=== PATIENT | female | born 1955 | race Caucasian/White ===

== ENCOUNTER 2017-08-29 08:00 | Outpatient (CLI) | payer OTHER | END 2017-08-29 10:00 | disposition home or self-care (01) | LOC: NUCLEAR 08:00 | DX: R91.1 Solitary pulmonary nodule (principal); K21.9 Gastro-esophageal reflux disease without esophagitis; J44.1 Chronic obstructive pulmonary disease with (acute) exacerbation | CPT/HCPCS: 78816; A9552 ==

== ENCOUNTER 2018-04-16 07:09 | Outpatient (CLI) | payer OTHER | END 2018-04-16 07:17 | disposition home or self-care (01) | LOC: TOM 07:09 | DX: R91.8 Other nonspecific abnormal finding of lung field (principal); Z72.0 Tobacco use ==

== ENCOUNTER 2019-04-27 07:35 | Outpatient (CLI) | payer OTHER | END 2019-04-27 07:52 | disposition home or self-care (01) | LOC: TOM 07:35 | DX: J44.9 Chronic obstructive pulmonary disease, unspecified (principal) ==

== ENCOUNTER → 2019-08-20 | Outpatient (CLI) | payer OTHER | END | disposition home or self-care (01) | LOC: RAD 08:34 | DX: M54.5 Low back pain (principal); M54.6 Pain in thoracic spine ==

== ENCOUNTER → 2019-08-21 | Outpatient (CLI) | payer OTHER | END | disposition home or self-care (01) | LOC: RAD 07:29 | DX: J44.9 Chronic obstructive pulmonary disease, unspecified (principal) ==

== ENCOUNTER 2023-06-25 13:43 | Outpatient (CLI) | payer OTHER | END 2023-06-25 13:55 | disposition home or self-care (01) | LOC: TOM 13:43 | DX: J44.9 Chronic obstructive pulmonary disease, unspecified (principal) ==

== ENCOUNTER → 2023-07-04 13:42 | Outpatient (CLI) | payer OTHER | END | disposition home or self-care (01) | LOC: NUCLEAR 13:42 | DX: M85.80 Other specified disorders of bone density and structure, unspecified site (principal) ==

== ENCOUNTER 2023-11-01 06:00 | Day surgery (SDC) | payer OTHER ==
[~2023-11-01] VITALS: Ht 172.7 cm; Wt 76.7 kg
[~2023-11-01 06:00] MED LIST: PROAIR RESPICL90 MCG IH; SINGULAIR10 MG PO; SYMBICORT 16010.2 GM IH
[2023-11-01] MEDS ORDERED: CEFTRIAXONE SODIUM 2,000 MG VIAL ONE (07:47)
[2023-11-01] MEDS ORDERED: METRONIDAZOLE/SODIUM CHLORIDE 500 MG/100 ML PIGGYBACK IV ONE ×2 (07:47→11:30)
[2023-11-01] MEDS ORDERED: POVIDONE-IODINE 118 ML BOTT TOP ONE ×2 (11:08→11:30)
[2023-11-01] MEDS ORDERED: HEMOSTATIC MATRIX 1 KIT KIT TOP ONE ×2 (11:08→11:30)
[2023-11-01] MEDS ORDERED: DIBUCAINE 15 GM OINT..GM. TUBE ONE (11:08)
[2023-11-01] MEDS ORDERED: CEFTRIAXONE SODIUM 2,000 MG VIAL IV ONE (11:30)
[2023-11-01] MEDS ORDERED: DIBUCAINE 15 GM OINT..GM. TUBE RECTAL ONE (11:30)
[2023-11-01] MEDS ORDERED: COLACE100 MG PO (12:18)
[2023-11-01] MEDS ORDERED: NEURONTIN300 MG PO (12:18)
[2023-11-01] MEDS ORDERED: TRAM1TAB98 PO (12:18)
== END 2023-11-01 16:00 | disposition home or self-care (01) ==
LOC: CIR.AMB 06:00
PROVIDERS: ATTEND Surgery
DX: K60.2 Anal fissure, unspecified (principal); K62.4 Stenosis of anus and rectum; K64.8 Other hemorrhoids; K62.89 Other specified diseases of anus and rectum; Z88.1 Allergy status to other antibiotic agents